=== PATIENT | female | born 1955 | race Two or more races ===

== ENCOUNTER → 2017-07-15 | Outpatient (CLI) | payer OTHER | END | disposition home or self-care (01) | LOC: MRI 14:43 | DX: M12.811 Other specific arthropathies, not elsewhere classified, right shoulder (principal); M75.121 Complete rotator cuff tear or rupture of right shoulder, not specified as traumatic | CPT/HCPCS: 73221 ==

== ENCOUNTER 2017-08-05 09:47 | Day surgery (SDC) | payer OTHER ==
[~2017-08-05 09:47] MED LIST: LIDOCAINE 1% PF 2 ML VIAL. ID; MORPHINE SULFATE 4 MG/ML DISP.SYRIN. IV; ONDANSETRON PF 4 MG/2 ML VIAL. IV; PROCHLORPERAZINE 10 MG/2 ML VIAL. IV; ceFAZolin 2GM PREMIX 2 GM/50 ML BAG IV; fentaNYL PF VIAL 100 MCG/2 ML VIAL IV
[2017-08-05] MEDS ORDERED: PROPOFOL 20 ML IV (09:48)
[2017-08-05] MEDS ORDERED: LIDOCAINE 2% PF Vial for OR 5 ML VIAL. (09:48)
[2017-08-05] MEDS ORDERED: DEXAMETHASONE SOD PHOS 20 MG/5 ML VIAL. (09:50)
[2017-08-05] MEDS ORDERED: ePHEDrine PF IN SALINE 50 MG/5 ML DISP.SYRIN IV (09:50)
[2017-08-05] MEDS ORDERED: ONDANSETRON PF 4 MG/2 ML VIAL. (09:50)
[2017-08-05] MEDS ORDERED: ROCURONIUM 50 MG/5 ML VIAL. (09:51)
[2017-08-05] MEDS ORDERED: fentaNYL PF VIAL 100 MCG/2 ML VIAL (09:52)
[2017-08-05 11:12] LABS: POC GLUCOSE 67 mg/dL (70-99)
[2017-08-05] MEDS: IV RINGERS,LACTATED 1000ML 1,000 ML IV (11:15)
[2017-08-05] MEDS: DEXTROSE 50% 25 GM / 50ML DISP.SYRIN. IV (11:25)
[2017-08-05 11:50] LABS: POC GLUCOSE 111 mg/dL (70-99)
[2017-08-05] MEDS ORDERED: MIDAZOLAM HCL/PF 2 MG/2 ML VIAL. (11:51)
[2017-08-05] MEDS: EPINEPHrine VIAL 30 MG/30 ML VIAL (12:26)
[2017-08-05] MEDS ORDERED: PHENYLEPHRINE 10 MG/ML VIAL. (12:49)
[2017-08-05] MEDS ORDERED: NEOSTIGMINE METHYLSULFATE 5 MG/5 ML SYRINGE. (13:38)
[2017-08-05] MEDS ORDERED: GLYCOPYRROLATE 1 MG/5 ML VIAL. (13:39)
[2017-08-05 14:18] LABS: POC GLUCOSE 104 mg/dL (70-99)
[2017-08-05] MEDS: oxyCODONE/APAP 7.5/325 1 TAB TABLET PO (15:13)
== END 2017-08-05 16:12 | disposition home or self-care (01) ==
LOC: SURG 09:47
DX: S46.011A Strain of muscle(s) and tendon(s) of the rotator cuff of right shoulder, initial encounter (principal); M75.01 Adhesive capsulitis of right shoulder; I10 Essential (primary) hypertension; E11.9 Type 2 diabetes mellitus without complications; E78.5 Hyperlipidemia, unspecified; E55.9 Vitamin D deficiency, unspecified; E03.9 Hypothyroidism, unspecified; K58.9 Irritable bowel syndrome, unspecified; Z98.890 Other specified postprocedural states; Z83.3 Family history of diabetes mellitus; Z87.891 Personal history of nicotine dependence; Z79.899 Other long term (current) drug therapy; Z79.4 Long term (current) use of insulin; E78.00 Pure hypercholesterolemia, unspecified; M19.90 Unspecified osteoarthritis, unspecified site; Z72.89 Other problems related to lifestyle; Z86.14 Personal history of Methicillin resistant Staphylococcus aureus infection; X58.XXXA Exposure to other specified factors, initial encounter; Y93.89 Activity, other specified; Y92.89 Other specified places as the place of occurrence of the external cause; Y99.8 Other external cause status
CPT/HCPCS: 29827; 82962; A7015; J0171; J0690; J1100; J2250; J2405; J2704; J2710; J3010; J3490; J7042

== ENCOUNTER → 2017-10-03 | Outpatient (CLI) | payer OTHER | END | disposition home or self-care (01) | LOC: MAMMO 07:43 | DX: Z12.31 Encounter for screening mammogram for malignant neoplasm of breast (principal) | CPT/HCPCS: 77067 ==

== ENCOUNTER → 2017-12-09 | Day surgery (SDC) | payer OTHER ==
[~2017-12-09] MED LIST changes: +ALEN70TA5 PO; +BUPIVACAINE MPF 0.5% 30 ML VIAL. ONE; +CHOL4POW2 PO; +CIPR250T30 PO; +CIPR500T94 PO; +DOXY100C2 PO; +ERGO500027 PO; +FLUT9.9S NS; +HYDR-3165 PO; +HYDROcodone/APAP 7.5/325MG 1 TAB TABLET PO ONE; +HYDROmorphone 2 MG/ML VIAL IV PRN; +IBUP-1007 PO; +INSU100C SQ; +INSU100C4 SQ; +INSU100I17 SQ; +INSU100I18 SQ; +INSU100I30 SQ; +INSU100V13 SQ; +IV RINGERS,LACTATED 1000ML 1,000 ML IV SCH; +LEVO125T5 PO; +LEVO150T PO; -LIDOCAINE 1% PF 2 ML VIAL. ID; +LIDOCAINE 1% PF 2 ML VIAL. ID PRN; +LOSA100T7 PO; +LOSA50TA2 PO; +MAGN400T22 PO; +METR500T PO; +MORPHINE SULFATE 2 MG/ML VIAL. IV PRN; +MORPHINE SULFATE 2 MG/ML VIAL. ONE; -MORPHINE SULFATE 4 MG/ML DISP.SYRIN. IV; +NPH,100V5 SQ; -ONDANSETRON PF 4 MG/2 ML VIAL. IV; +ONDANSETRON PF 4 MG/2 ML VIAL. IV PRN; +OXYC1TAB19 PO; +PRAV40TA2 PO; -PROCHLORPERAZINE 10 MG/2 ML VIAL. IV; +PROCHLORPERAZINE 10 MG/2 ML VIAL. IV PRN; +PROPOFOL 40 ML IV ONE; -ceFAZolin 2GM PREMIX 2 GM/50 ML BAG IV; -fentaNYL PF VIAL 100 MCG/2 ML VIAL IV; +fentaNYL PF VIAL 100 MCG/2 ML VIAL IV PRN; +fentaNYL PF VIAL 100 MCG/2 ML VIAL ONE; +losartan; +methylPREDNISolone ACETATE 80 MG/ML VIAL. ONE; +pravastatin
--- NOTE | 2017-12-09 15:03 | DISCH ---
DISCHARGE INSTRUCTIONS Condition on Discharge Condition on Discharge: Stable Activity After Discharge Activity Instructions for Disc: No restrictions, Other, see below Exercise Instruction after Dis: Exercise per therapy (immediate full aggressive active and passive range of motion, no restrictions) Diet after Discharge Diet after Discharge: Regular Liquid Texture: Thin Liquid Wound Incision Care Wound/Incision Care: Ice to area for comfort, No wound care needed Community/Resources/Services Services at Discharge: PT EVALUATE & TREAT (immediate aggressive passive and active range of motion strengthening as tolerated) Contacting the DRMasoud after DC Call your doctor for: Concerns you may have Follow-Up Follow up with: Yani 7-10 days Treatment/Equipment after DC Adaptive Equipment Issued: None ALVARADO PEACE MD Dec 09, 2017 15:03
[2017-12-09] MEDS: fentaNYL PF VIAL 100 MCG/2 ML VIAL IV PRN ×4 (15:20→15:49)
--- NOTE | 2017-12-09 15:47 | PDOC4 ---
Operative Note Operative Note Date of surgery: 12/09/2017 Preoperative diagnosis: Right shoulder adhesive capsulitis Postoperative diagnosis: Same Operative procedure: Right shoulder manipulation under anesthesia and injection glenohumeral joint Surgeon: Yani Anesthesia: Deep sedation Operative indications: Mellissa had undergone previous right shoulder arthroscopy and developed frozen shoulder that she was unable to overcome despite diligent physical therapy and home exercises. I had gone over with her and her preoperative consultation the rationale for treatment with the manipulation under anesthesia the possibility that the frozen shoulder would go away on its own after about an average of 18 months and the other option that she has been trying aggressive motion and stretching with physical therapy and home exercises which has failed. All her questions were answered she wishes to proceed with surgical evaluation and treatment. Operative text: Patient was identified procedure verified patient placed in the supine position on the patient cart. After timeout was performed patient procedure identified and verified and adequate amounts of deep sedation provided motion of the right shoulder was first checked and found to lack terminal 60 of external rotation and abduction about 50 of elevation and forward flexion and about 25-30 of terminal motion and internal rotation all of which were restored fully after an audible and palpable release of tissue with manipulation full range of motion without instability was restored in all planes. Under sterile conditions 1 mL 80 mg/mm Depo-Medrol and 3 mL of half percent plain lidocaine were injected into the glenohumeral joint. She tolerated the procedure well and was given strict instructions to not immobilize the shoulder at all but instead pursue immediate full range of motion with physical therapy as soon as possible for unrestricted passive and active range of motion aggressively strengthening as tolerated ALVARADO PEACE MD Dec 09, 2017 15:47
[2017-12-09 16:35] VITALS: BP 155/63
== END | disposition home or self-care (01) ==
LOC: SURG 12:01
PROVIDERS: ATTEND Orthopaedic Surgery
DX: M75.01 Adhesive capsulitis of right shoulder (principal); I10 Essential (primary) hypertension; E11.9 Type 2 diabetes mellitus without complications; E78.5 Hyperlipidemia, unspecified; E03.9 Hypothyroidism, unspecified; M81.0 Age-related osteoporosis without current pathological fracture; E55.9 Vitamin D deficiency, unspecified; K58.9 Irritable bowel syndrome, unspecified; Z98.890 Other specified postprocedural states; Z87.891 Personal history of nicotine dependence; Z72.89 Other problems related to lifestyle; Z79.899 Other long term (current) drug therapy; Z79.84 Long term (current) use of oral hypoglycemic drugs; Z79.4 Long term (current) use of insulin; Z86.14 Personal history of Methicillin resistant Staphylococcus aureus infection
CPT/HCPCS: 23700; 82962; J1040; J2270; J2704; J3010; J3490

== ENCOUNTER → 2018-10-19 | Outpatient (CLI) | payer OTHER ==
[2017-12-09 16:35] VITALS: BP 155/63
[~2018-10-19] MED LIST changes: -ALEN70TA5 PO; +ALEN70TA6 PO; -BUPIVACAINE MPF 0.5% 30 ML VIAL. ONE; -HYDROcodone/APAP 7.5/325MG 1 TAB TABLET PO ONE; -HYDROmorphone 2 MG/ML VIAL IV PRN; -IV RINGERS,LACTATED 1000ML 1,000 ML IV SCH; -LIDOCAINE 1% PF 2 ML VIAL. ID PRN; +LOSA-73 PO; +LOSA100T14 PO; -LOSA100T7 PO; -LOSA50TA2 PO; -MORPHINE SULFATE 2 MG/ML VIAL. IV PRN; -MORPHINE SULFATE 2 MG/ML VIAL. ONE; -ONDANSETRON PF 4 MG/2 ML VIAL. IV PRN; -PROCHLORPERAZINE 10 MG/2 ML VIAL. IV PRN; -PROPOFOL 40 ML IV ONE; -fentaNYL PF VIAL 100 MCG/2 ML VIAL IV PRN; -fentaNYL PF VIAL 100 MCG/2 ML VIAL ONE; -methylPREDNISolone ACETATE 80 MG/ML VIAL. ONE
--- NOTE | 2018-10-20 12:43 | SLEEP ---
DATE OF STUDY: 10/19/2018 SLEEP STUDY REFERRING PHYSICIAN: Gideon Jason MD The patient is 63 years old who weighs 187 pounds with a BMI of 34. The patient's Rifton score was 9. The patient underwent home sleep study performed at [facility]. Total recording time was 469 minutes. During the night study, the patient had 66 obstructive apneas and 131 mixed apneas, no central apneas and 220 hypopneas. The patient's apnea-hypopnea index was 53 per hour. Supine sleep, not recorded. Nocturnal oximetry study revealed an average oxygen saturation of 93% with the lowest of 69%. 41 minutes were spent in oxygen saturation less than 90%. Mean heart rate 71 beats per minute. IMPRESSION: 1. Severe sleep apnea-hypopnea syndrome at an AHI of 53 per hour. 2. Nocturnal hypoxia secondary to obstructive sleep apnea. RECOMMENDATIONS: 1. The patient would benefit from in-lab CPAP titration study. 2. Once the patient is optimally treated with CPAP then follow up in 4-6 weeks to assess compliance with CPAP and to document clinical improvement. 3. Weight loss is advised. 4. Avoid NETWORK LEAD depressants. 5. Caution regarding driving until symptoms of sleep apnea resolve with the use of CPAP. BHAVIN MELISSA MD DR: SUDARSHAN/nisreen JOB#: [id number] / [id number] GIDEON Vernon MD
== END | disposition home or self-care (01) ==
LOC: RT 08:01
PROVIDERS: ATTEND Family Medicine
DX: G47.33 Obstructive sleep apnea (adult) (pediatric) (principal); G47.34 Idiopathic sleep related nonobstructive alveolar hypoventilation
CPT/HCPCS: G0399

== ENCOUNTER → 2019-08-31 | Outpatient (CLI) | payer OTHER ==
[2017-12-09 16:35] VITALS: BP 155/63
--- NOTE | 2019-08-31 09:38 | CARD ---
MR#: [id number] Date of Study: 08/31/2019 Ordering Physician: ABHINAV BRENNER, Referring Physician: ABHINAV BRENNER, Tech: Bhumika Santizo APPROVED REPORT EXAM: Two-dimensional and M-mode echocardiogram with Doppler and color Doppler. Other Information Quality : AverageHR: 80bpm Technically limited study due to body habitus. INDICATION Dyspnea 2D DIMENSIONS RVDd3.4 (2.9-3.5cm)Left Atrium(2D)2.7 (1.6-4.0cm) IVSd1.3 (0.7-1.1cm)Aortic Root(2D)2.6 (2.0-3.7cm) LVDd4.8 (3.9-5.9cm)LVOT Diameter2.1 (1.8-2.4cm) PWd1.0 (0.7-1.1cm)LVDs2.6 (2.5-4.0cm) FS (%) 46.8 %SV84.2 ml LVEF(%)78.1 (>50%) Aortic Valve AoV Peak Dane.149.1cm/sAoV VTI32.5cm AO Peak GR.8.9mmHgLVOT Peak Dane.109.5cm/s LVOT VTI 25.83cmAO Mean GR.5mmHg SHERI (VMAX)1.87re7ORX (VTI)2.71cm2 Mitral Valve MV E Saodmmus48.1cm/sMV DECEL QIYQ941tw MV A Ivugksjg36.3cm/sMV E Mean Gr.2mmHg MV FFU46vnN/A Ratio0.7 MVA (PHT)2.79cm2 TDI E/Lateral E'10.3E/Medial E'9.6 Pulmonary Valve PV Peak Ntocvknw95.8cm/sPV Peak Grad.4mmHg Tricuspid Valve TR P. Gjafeppf793fy/sRAP FWGRMCED0pxEj TR Peak Gr.22afEsESNO87lvGj Pulmonary Vein S1 Xanatsqo42.1cm/sD2 Avoujtnj28.8cm/s PVa [id number] LEFT VENTRICLE The left ventricle is normal size. There is borderline to mild concentric left ventricular hypertroph y. The left ventricular systolic function is normal. The Ejection Fraction is 60-65%. There is normal LV segmental wall motion. Transmitral Doppler flow pattern is Grade I-abnormal relaxation pattern. RIGHT VENTRICLE The right ventricle is normal size. There is normal right ventricular wall thickness. The right ventr icular systolic function is normal. ATRIA The left atrium is borderline dilated. The right atrium size is normal. The interatrial septum is int act with no evidence for an atrial septal defect or patent foramen ovale as noted on 2-D or Doppler i maging. AORTIC VALVE The aortic valve is thickened but opens well. Doppler and Color Flow revealed no significant aortic r egurgitation. There is no significant aortic valvular stenosis. MITRAL VALVE The mitral valve is normal in structure and function. There is no evidence of mitral valve prolapse. There is no mitral valve stenosis. Doppler and Color-flow revealed trace mitral regurgitation. TRICUSPID VALVE The tricuspid valve is normal in structure and function. Doppler and Color Flow revealed trace tricus pid regurgitation with an estimated PAP of 35 mmHg. There is no tricuspid valve stenosis. PULMONIC VALVE The pulmonic valve is not well visualized. Doppler and Color Flow revealed trace pulmonic valvular re gurgitation. GREAT VESSELS The aortic root is normal in size. The ascending aorta is normal in size. The IVC is dilated and imani apses >50% with inspiration. PERICARDIAL EFFUSION There is no evidence of significant pericardial effusion. Critical Notification Critical Value: No <Conclusion> The left ventricular systolic function is normal. The Ejection Fraction is 60-65%. There is normal LV segmental wall motion. Transmitral Doppler flow pattern is Grade I-abnormal relaxation pattern. Trace mitral regurgitation. Trace tricuspid regurgitation with an estimated PAP of 35 mmHg. There is no evidence of significant pericardial effusion. Signed by : Nayan Figueroa, Electronically Approved : 08/31/2019 09:38:08
== END | disposition home or self-care (01) ==
LOC: ECHO 07:38
PROVIDERS: ATTEND Internal Medicine Cardiovascular Disease
DX: I51.7 Cardiomegaly (principal)
CPT/HCPCS: 93306

== ENCOUNTER 2019-10-27 12:22 | Emergency (ER) | payer OTHER ==
[~2019-10-27] VITALS: Ht 154.9 cm; Wt 89.7 kg
[2019-10-27 12:39] VITALS: BP 182/105
--- NOTE | 2019-10-27 12:49 | PHYS DOC ---
Past Medical History Past Medical History: Diabetes-Type II, High Cholesterol, Hypertension, MRSA, Pneumonia, Other Additional Past Medical Histor: urinary sepsis Past Surgical History: Other Additional Past Surgical Histo: perirectal abscess Smoking Status: Former Smoker Alcohol Use: Occasionally Drug Use: None General Adult EDM: Chief Complaint: MECHANICAL FALL HPI: HPI: Patient is a 64 year old female who presents with had the dog leash in 1 hand and a big tree limb and another and was dragging the tree limb and when she went to turn the leash got caught on the tree limb and she tripped and fell backward hitting the left back of her head on cement. She denies LOC but states she is nauseated. Patient denies neck pain, back pain, dizziness, vision changes, numbness or tingling, focal weakness, vomiting, syncope. She rates the throbbing pain in her head a 10 out of 10. Patient's blood pressure is slightly elevated but she has not taken her blood pressure medications today. Patient has a history of hypertension, diabetes, high cholesterol, pneumonia, MRSA. Review of Systems: Review of Systems: Constitutional: Denies fever or chills. [] Eyes: Denies change in visual acuity. [] HENT: Denies nasal congestion or sore throat. [] Respiratory: Denies cough or shortness of breath. [] Cardiovascular: Denies chest pain or edema. [] GI: Denies abdominal pain, nausea, vomiting, bloody stools or diarrhea. [] : Denies dysuria. [] Musculoskeletal: Denies back pain or joint pain. [] Integument: Denies rash. Bruising to back of head with tenderness. [] Neurologic: headache, denies focal weakness or sensory changes. [] Endocrine: Denies polyuria or polydipsia. [] Lymphatic: Denies swollen glands. [] Psychiatric: Denies depression or anxiety. [] Heart Score: Risk Factors: Risk Factors: DM, Current or recent (<one month) smoker, HTN, HLP, family history of CAD, obesity. Risk Scores: Score 0 - 3: 2.5% MACE over next 6 weeks - Discharge Home Score 4 - 6: 20.3% MACE over next 6 weeks - Admit for Clinical Observation Score 7 - 10: 72.7% MACE over next 6 weeks - Early Invasive Strategies Allergies: Allergies: Allergies Coded Allergies Type Severity Reaction Last Updated Verified No Known Drug Allergies 12/09/17 No Physical Exam: PE: Constitutional: Well developed, well nourished, no acute distress, non-toxic appearance. [] HENT: Normocephalic, atraumatic, bilateral external ears normal, oropharynx moist, no oral exudates, nose normal. [] Eyes: PERRLA, EOMI, conjunctiva normal, no discharge. [] Neck: Normal range of motion, no tenderness, supple, no stridor. [] Cardiovascular:Heart rate regular rhythm, no murmur [] Lungs & Thorax: Bilateral breath sounds clear to auscultation [] Abdomen: Bowel sounds normal, soft, no tenderness, no masses, no pulsatile masses. [] Skin: Warm, dry, no erythema, no rash. Bruising to left back scalp with purple center that does feel slightly dented. [] Back: No tenderness, no CVA tenderness. [] Extremities: No tenderness, no cyanosis, no clubbing, ROM intact, no edema. [] Neurologic: Alert and oriented X 3, normal motor function, normal sensory functi on, no focal deficits noted. [] Psychologic: Affect normal, judgement normal, mood normal. [] EKG: EKG: [] Radiology/Procedures: Radiology/Procedures: [] Impression: [facility] [address] [place], [place] [id number] IMAGING REPORT Signed PATIENT: GALO LARA AACCOUNT: [id number] : 1955 LOCATION: ER AGE: 64 SEX: F EXAM STATUS: REG ER ORD. PHYSICIAN: AJ العلي APRN REASON: fall, hit head PROCEDURE: CT HEAD AND CERVICAL SPINE WO CT HEAD AND CERVICAL SPINE WO dated 10/27/2019 12:41 PM. Comparison: 12/02/2015. Clinical Indication: Reason: fall, hit head / Spl. Instructions: / History: PAIN AFTER INJURY. Technical factors: Contiguous 5 mm axial images of the head were obtained from the skullbase to the vertex. No contrast was administered. In addition, 3 mm axial images of the cervical spine were acquired with thin cut coronal and sagittal reconstructions. One or more of the following individualized dose reduction techniques were utilized for this examination: 1. Automated exposure control 2. Adjustment of the mA and/or kV according to patient size 3. Use of iterative reconstruction technique Findings head: Ventricles and sulci are mildly prominent for age. No midline shift or mass effect. There is some mild patchy low density in the deep/subcortical periventricular white matter. No hemorrhage or extra axial collection. Posterior fossa and brainstem unremarkable. Visualized paranasal sinuses and mastoid air cells are clear. No apparent calvarial abnormality. IMPRESSION HEAD: 1. No evidence of acute intracranial hemorrhage or mass. 2. Mild chronic small vessel ischemic changes and atrophy. Findings cervical spine: Images were acquired from the skull base to mid T3. There is straightening of the normal cervical lordosis, otherwise sagittal alignment is anatomic. Vertebral body heights are maintained. No prevertebral soft tissue swelling. Posterior elements are intact. No fractures are identified. Mild endplate hypertrophic changes throughout. Mild multilevel disc space narrowing, most severe at C5-C6. Multilevel uncovertebral spurring and facet arthropathy. No significant central canal or foraminal compromise. Visualized soft tissue structures are unremarkable. Nonspecific small calcification within the right lobe thyroid gland. Limited images of lung apices are clear. IMPRESSION CERVICAL SPINE: 1. No evidence of fracture or malalignment. 2. Mild multilevel spondylosis. Electronically signed by: Santa Laureano MD (10/27/2019 1:13 PM) [facility] [place] DICTATED and SIGNED BY: SANTA LAUREANO MD DATE: 10/27/19 1313 Course & Med Decision Making: Course & Med Decision Making Pertinent Labs and Imaging studies reviewed. (See chart for details) Patient is alert and oriented x4. She is ambulatory with a steady gait. No focal bony spinal tenderness, no deformities or bruising with palpation. PERRLA. Speaks in full clear sentences. Full range of motion of her neck. Moves all extremities equally with equal strengths. Answers all questions appropriately. Patient has a dollar coined sized red cachil dehe bruising to the left back of scalp with purple in the middle. It does feel slight dented. Tenderness noted. No bleeding, lacerations, or abrasion. No drainage coming from nose or ears. No other bruising to the face or skull. [] Dragon Disclaimer: Dragon Disclaimer: This electronic medical record was generated, in whole or in part, using a voice recognition dictation system. Departure Departure Impression: Primary Impression: Head injury, acute, without loss of consciousness Qualified Codes: S09.90XA - Unspecified injury of head, initial encounter Disposition: 01 HOME, SELF-CARE Condition: STABLE Referrals: SANTA MARK MD (PCP) Patient Instructions: Head Injury, Adult Additional Instructions: Follow up with primary care provider. Take medications as prescribed. These medications will make you sleepy, do not drive or operate heavy machinery or drink alcohol with these medications. For the next 3-5 days rest and try not to do any strenuous activities as this can make your head pain worse. If you pass out, begin having severe vomiting, or severe pain return to the ED. Scripts Orphenadrine Citrate (ORPHENADRINE CITRATE) 100 Mg Tablet.er 1 TAB PO BID, #14 TAB 1 Refill Prov: AJ العلي APRN 10/27/19 Ondansetron (ONDANSETRON ODT) 4 Mg Tab.rapdis 1 TAB PO PRN Q6-8HRS, #16 TAB Prov: AJ العلي APRN 10/27/19 Hydrocodone/Apap 5-325 (NORCO 5-325 TABLET) 1 Each Tablet 1 TAB PO PRN Q6HRS PRN for PAIN, #12 TAB 0 Refills Prov: AJ العلي APRN 10/27/19 Justicifation of Admission Dx: Justifications for Admission: Justification of Admission Dx: N/A AJ العلي APRN Oct 27, 2019 12:49
[2019-10-27] MEDS: ONDANSETRON ODT 4 MG TAB.RAPDIS. PO ONE (12:57)
[2019-10-27] MEDS: ORPHENADRINE CITRATE 60 MG/2 ML VIAL. IM ONE (12:58)
[2019-10-27] MEDS: HYDROcodone/APAP 5/325MG 1 TAB TABLET PO ONE (12:58)
--- NOTE | 2019-10-27 13:16 | RAD ---
CT HEAD AND CERVICAL SPINE WO dated 10/27/2019 12:41 PM. Comparison: 12/02/2015. Clinical Indication: Reason: fall, hit head / Spl. Instructions: / History: PAIN AFTER INJURY. Technical factors: Contiguous 5 mm axial images of the head were obtained from the skullbase to the vertex. No contrast was administered. In addition, 3 mm axial images of the cervical spine were acquired with thin cut coronal and sagittal reconstructions. One or more of the following individualized dose reduction techniques were utilized for this examination: 1. Automated exposure control 2. Adjustment of the mA and/or kV according to patient size 3. Use of iterative reconstruction technique Findings head: Ventricles and sulci are mildly prominent for age. No midline shift or mass effect. There is some mild patchy low density in the deep/subcortical periventricular white matter. No hemorrhage or extra axial collection. Posterior fossa and brainstem unremarkable. Visualized paranasal sinuses and mastoid air cells are clear. No apparent calvarial abnormality. IMPRESSION HEAD: 1. No evidence of acute intracranial hemorrhage or mass. 2. Mild chronic small vessel ischemic changes and atrophy. Findings cervical spine: Images were acquired from the skull base to mid T3. There is straightening of the normal cervical lordosis, otherwise sagittal alignment is anatomic. Vertebral body heights are maintained. No prevertebral soft tissue swelling. Posterior elements are intact. No fractures are identified. Mild endplate hypertrophic changes throughout. Mild multilevel disc space narrowing, most severe at C5-C6. Multilevel uncovertebral spurring and facet arthropathy. No significant central canal or foraminal compromise. Visualized soft tissue structures are unremarkable. Nonspecific small calcification within the right lobe thyroid gland. Limited images of lung apices are clear. IMPRESSION CERVICAL SPINE: 1. No evidence of fracture or malalignment. 2. Mild multilevel spondylosis. Electronically signed by: Gideon Laureano MD (10/27/2019 1:13 PM) [facility]
[2019-10-27] MEDS ORDERED: ONDA4TAB12 PO (13:22)
[2019-10-27] MEDS ORDERED: HYDR-3164 PO (13:22)
[2019-10-27] MEDS ORDERED: ORPH100T PO (13:22)
== END 2019-10-27 13:45 | disposition home or self-care (01) ==
LOC: ER 12:22
DX: S30.0XXA Contusion of lower back and pelvis, initial encounter (principal); S09.8XXA Other specified injuries of head, initial encounter; E11.9 Type 2 diabetes mellitus without complications; E78.00 Pure hypercholesterolemia, unspecified; I10 Essential (primary) hypertension; Z86.14 Personal history of Methicillin resistant Staphylococcus aureus infection; Z98.890 Other specified postprocedural states; Z87.891 Personal history of nicotine dependence; W18.09XA Striking against other object with subsequent fall, initial encounter; Y93.89 Activity, other specified; Y92.89 Other specified places as the place of occurrence of the external cause; Y99.8 Other external cause status
CPT/HCPCS: 70450; 72125; 96372; 99285; J2360

== ENCOUNTER → 2020-03-28 | Outpatient (CLI) | payer OTHER ==
[~2020-03-28] MED LIST changes: -ALEN70TA6 PO; +ALEN70TA71 PO; +HYDR-3164 PO; +ONDA4TAB12 PO; +ORPH100T PO
== END ==
LOC: LAB 10:44
PROVIDERS: ATTEND Orthopaedic Surgery
DX: Z01.812 Encounter for preprocedural laboratory examination (principal); Z20.828 Contact with and (suspected) exposure to other viral communicable diseases
CPT/HCPCS: U0003

== ENCOUNTER 2020-03-31 06:09 | Day surgery (SDC) | payer OTHER ==
[~2020-03-31] VITALS: Ht 157.5 cm; Wt 91.2 kg
[2020-03-31] MEDS ORDERED: INSULIN LISPRO 100 UNIT/ML 3ML VIAL for OP,RR ONLY. SQ PRN (06:15)
[2020-03-31] MEDS ORDERED: BUPIVACAINE MPF 0.5% 30 ML VIAL. ONE (06:52)
[2020-03-31] MEDS ORDERED: LIDOCAINE 1% PF 2 ML VIAL. ONE (06:52)
[2020-03-31] MEDS ORDERED: fentaNYL PF VIAL 100 MCG/2 ML VIAL ONE ×2 (06:57→08:26)
[2020-03-31] MEDS ORDERED: MIDAZOLAM HCL/PF 2 MG/2 ML VIAL. ONE (06:57)
[2020-03-31] MEDS ORDERED: IV RINGERS,LACTATED 1000ML 1,000 ML IV SCH (07:00)
[2020-03-31] MEDS ORDERED: methylPREDNISolone ACETATE 80 MG/ML VIAL. ONE (07:00)
[2020-03-31] MEDS ORDERED: MORPHINE SULFATE 2 MG/ML VIAL. IV PRN (07:00)
[2020-03-31] MEDS ORDERED: HYDROmorphone 2 MG/ML VIAL IV PRN (07:00)
[2020-03-31] MEDS ORDERED: BUPIVACAINE-EPI 0.5%-1:200000 MPF 30 ML VIAL. INJ ONE (07:00)
[2020-03-31] MEDS ORDERED: ONDANSETRON PF 4 MG/2 ML VIAL. IV PRN (07:00)
[2020-03-31] MEDS ORDERED: fentaNYL PF VIAL 100 MCG/2 ML VIAL IV PRN ×2 (07:00)
[2020-03-31] MEDS ORDERED: PROCHLORPERAZINE 10 MG/2 ML VIAL. IV PRN (07:00)
[2020-03-31] MEDS ORDERED: PROPOFOL 10 MG/ML (20ML) VIAL. IV ONE (07:02)
[2020-03-31] MEDS ORDERED: LIDOCAINE 2% PF 5 ML VIAL. ONE (07:02)
[2020-03-31] MEDS ORDERED: INSULIN LISPRO 100 UNIT/ML 3ML VIAL for OP,RR ONLY. SQ ONE (08:00)
--- NOTE | 2020-03-31 08:37 | DISCH ---
DISCHARGE INSTRUCTIONS Condition on Discharge Condition on Discharge: Stable Activity After Discharge Activity Instructions for Disc: No restrictions (No activity restrictions w hatsoever immediate aggressive range of motion with physical therapy and home exercises) Exercise Instruction after Dis: Exercise per therapy Weight Bearing Status after Di: As tolerated Diet after Discharge Diet after Discharge: Regular Liquid Texture: Thin Liquid Wound Incision Care Wound/Incision Care: Ice to area for comfort, No wound care needed Community/Resources/Services Services at Discharge: PT EVALUATE & TREAT (Immediate aggressive range of motion to keep the motion restored in the manipulation procedure, may start strengthening as tolerated) Contacting the DRMasoud after DC Call your doctor for: Concerns you may have Follow-Up Follow up with: Dr. Lomeli 10 days Treatment/Equipment after DC Adaptive Equipment Issued: None ALVARADO LOMELI MD Mar 31, 2020 08:37
--- NOTE | 2020-03-31 08:41 | PDOC4 ---
Operative Note Operative Note Date of surgery: 03/31/2020 Preoperative diagnosis: Left shoulder adhesive capsulitis Postoperative diagnosis same Operative procedure: Left shoulder manipulation under anesthesia and injection glenohumeral joint Surgeon: Yani Anesthesia: Interscalene block plus sedation provided by anesthesia Complications: None Estimated blood loss: None Operative indications: Please see my preoperative clinic note for detailed operative indications and note that we reviewed the rationale for manipulation to break up her scar tissue and the necessity of immediate motion stretching physical therapy to keep the motion that she regained. We talked about the possibility of recurrence and medical or other anesthetic issues and she agrees to proceed Operative text: Patient was identified procedure verified patient placed in the supine position on the operating cart and after a pre-existing scalene block was obtained patient was given propofol sedation by anesthesia. The shoulder was first examined and found to lack about 50 degrees of terminal elevation about 45 degrees of terminal external rotation and abduction and about 30 degrees terminal internal rotation. The shoulder was manipulated under anesthesia and obtained full range of motion in all planes with no instability after an audible and palpable release of tissue. The glenohumeral joint was then injected from an anterior approach with half percent Marcaine with epinephrine and 1 cc 80 mg/cc Depo-Medrol under sterile conditions. She was returned to recovery room in stable condition having tolerated the procedure well and she and her family were instructed to proceed with immediate physical therapy to continue her stretching to keep the range of motion ALVARADO PEACE MD Mar 31, 2020 08:41
[2020-03-31 08:58] VITALS: BP 151/62
== END 2020-03-31 09:20 | disposition home or self-care (01) ==
LOC: SURG 06:09
PROVIDERS: ATTEND Orthopaedic Surgery
DX: M75.02 Adhesive capsulitis of left shoulder (principal); I10 Essential (primary) hypertension; E78.00 Pure hypercholesterolemia, unspecified; G47.30 Sleep apnea, unspecified; E66.9 Obesity, unspecified; E11.9 Type 2 diabetes mellitus without complications; E03.9 Hypothyroidism, unspecified; M19.90 Unspecified osteoarthritis, unspecified site; Z87.891 Personal history of nicotine dependence; Z72.89 Other problems related to lifestyle; Z79.899 Other long term (current) drug therapy; Z98.890 Other specified postprocedural states; Z68.36 Body mass index [BMI] 36.0-36.9, adult
CPT/HCPCS: 20610; 23700; 64450; 82962; J0690; J1040; J1815; J2250; J2704; J3010; J3490

== ENCOUNTER → 2020-09-07 | Outpatient (CLI) | payer OTHER ==
--- NOTE | 2020-09-07 11:08 | RAD ---
MR#: [id number] Date of Study: 09/07/2020 Ordering Physician: ABHINAV BRENNER, Referring Physician: ABHINAV BRENNER, Tech: Edwin Conteh MBA, RDMS, RVT, RDCS, RTR APPROVED REPORT Bilateral Lower Extremity Venous Study for DVT Patient Location: OUT-PATIENT Indications Lower Extremity Edema: Bilateral Vein Imaging (Right) CFV (R): Compressible SFJ (R): Compressible FEM (R): Compressible POP (R): Compressible DFV (R): Compressible PTV (R): Spontaneous GSV (R): Spontaneous Peroneals (R): Spontaneous Vein Imaging (Left) CFV (L): Compressible SFJ (L): Compressible FEM (L): Compressible POP (L): Compressible DFV (L): Compressible PTV (L): Spontaneous GSV (L): Spontaneous Peroneals (L): Spontaneous Doppler Evaluation (Right) CFV (R): Spontaneous POP (R):Spontaneous Doppler Evaluation (Left) CFV (L):Spontaneous POP (L):Spontaneous Findings The bilateral lower extremity deep veins were evaluated for thrombus with color Doppler, spectral and grayscale images. On the right the grayscale images of the common femoral, superficial femoral and popliteal veins do n ot demonstrate any evidence of thrombus and these veins appear to be compressible. The below-knee vei ns were not well visualized but grossly appear to be compressible. Spectral imaging and color Doppler do not reveal any evidence of obstruction to flow with normal respirophasic variation above the knee . Below the knee there is spontaneous flow noted. On the left, the grayscale images of the common femoral, superficial femoral and popliteal veins do n ot demonstrate any evidence of thrombus and these veins appear to be compressible. The below-knee vei ns again were not well visualized but grossly appear to be compressible. Spectral imaging and color D oppler do not reveal any evidence of obstruction to flow with normal respirophasic variation above th e knee. The below-knee veins demonstrate spontaneous flow. Critical Notification Critical Value: No <Conclusion> 1. Negative for DVT in the bilateral lower extremities. 2. Technically difficult study. Signed by : Keshav Kidd, Electronically Approved : 09/07/2020 11:07:35
--- NOTE | 2020-09-07 11:11 | RAD ---
MR#: [id number] Date of Study: 09/07/2020 Ordering Physician: ABHINAV BRENNER, Referring Physician: ABHINAV BRENNER, Tech: Edwin Conteh, ZAIDA, RDMS, RVT, RDCS, RTR APPROVED REPORT Patient Location : OUT-PATIENT Indications Lower Extremity Edema : Bilateral Findings The right great saphenous vein measures 4.4 mm and the left great saphenous vein measures 4.6 mm. On limited images, the bilateral saphenofemoral junctions did not reveal any obvious evidence of thro mbus. The bilateral greater and lesser saphenous veins do not show any evidence of reflux on spectral imagi ng. Critical Notification Critical Value: No <Conclusion> 1. Negative for reflux in the bilateral greater and lesser saphenous veins. Signed by : Keshav Kidd, Electronically Approved : 09/07/2020 11:10:38
== END ==
LOC: US 08:44
PROVIDERS: ATTEND Internal Medicine Cardiovascular Disease
DX: R60.0 Localized edema (principal)
CPT/HCPCS: 93970

== ENCOUNTER → 2020-10-26 | Outpatient (CLI) | payer OTHER ==
[~2020-10-26] MED LIST changes: -DOXY100C2 PO; +DOXY100C3 PO
--- NOTE | 2020-10-26 18:54 | CARD ---
MR#: [id number] Date of Study: 10/26/2020 Ordering Physician: RITESH DAVIS, Referring Physician: RITESH DAVIS, Tech: Blas Zamora RUST APPROVED REPORT EXAM: Two-dimensional and M-mode echocardiogram with Doppler and color Doppler. Other Information Quality : FairHR: 77bpm Rhythm : NSR INDICATION Cardiomyopathy RISK FACTORS Obesity 2D DIMENSIONS Left Atrium(2D)4.1 (1.6-4.0cm)IVSd1.1 (0.7-1.1cm) Aortic Root(2D)2.8 (2.0-3.7cm)LVDd4.4 (3.9-5.9cm) LVOT Diameter1.9 (1.8-2.4cm)PWd1.1 (0.7-1.1cm) LVDs2.4 (2.5-4.0cm)FS (%) 45.3 % SV67.7 ml Aortic Valve AoV Peak Dane.140.5cm/sAoV VTI29.4cm AO Peak GR.7.9mmHgLVOT Peak Dane.115.9cm/s AO Mean GR.4mmHgAVA (VMAX)2.41cm2 Mitral Valve MV E Mvjlbjop13.1cm/sMV E Peak Gr.6mmHg MV DECEL [id number] A Dioeclbl021.0cm/s MV E Mean Gr.3mmHgE/A Ratio0.7 Pulmonary Valve PV Peak Bmrnshmq818.4cm/s Tricuspid Valve TR P. Jakpgcdy999lg/sTR Peak Gr.22mmHg Pulmonary Vein S1 Ymydlqhl93.7cm/sD2 Urtrhsmh53.5cm/s LEFT VENTRICLE The left ventricle is normal size. There is normal left ventricular wall thickness. The left ventricu lar systolic function is normal and the ejection fraction is within normal range. The Ejection Fracti on is 60-65%. There is normal LV segmental wall motion. Tissue Doppler imaging reveals abnormal left ventricular diastolic dysfunction. No left ventricle thrombus noted on this study. There is no ventri cular septal defect visualized. There is no left ventricular aneurysm. There is no mass noted in the left ventricle. RIGHT VENTRICLE The right ventricle is normal size. There is normal right ventricular wall thickness. The right ventr icular systolic function is normal. ATRIA The left atrium is borderline dilated. The right atrium size is normal. AORTIC VALVE The aortic valve is mildly sclerotic. Doppler and Color Flow revealed no significant aortic regurgita tion. There is no significant aortic valvular stenosis. There is no aortic valvular vegetation. MITRAL VALVE The mitral valve is normal in structure and function. There is no evidence of mitral valve prolapse. There is no mitral valve stenosis. Doppler and Color Flow revealed trace mitral valve regurgitation. TRICUSPID VALVE The tricuspid valve is normal in structure and function. Doppler and Color Flow revealed trace tricus pid regurgitation. There is no tricuspid valve prolapse or vegetation. There is no tricuspid valve st enosis. PULMONIC VALVE The pulmonary valve is normal in structure and function. Doppler and Color Flow revealed no pulmonic valvular regurgitation. There is no pulmonic valvular stenosis. GREAT VESSELS The aortic root is normal in size. The ascending aorta is normal in size. The pulmonary artery is nor mal. The IVC is normal in size and collapses >50% with inspiration. PERICARDIAL EFFUSION There is no pleural effusion. There is no evidence of significant pericardial effusion. Critical Notification Critical Value: No <Conclusion> The left ventricle is normal size. The left ventricular systolic function is normal and the ejection fraction is within normal range. The Ejection Fraction is 60-65%. There is normal LV segmental wall motion. Doppler and Color Flow revealed no significant aortic regurgitation. There is no significant aortic valvular stenosis. Doppler and Color Flow revealed trace mitral valve regurgitation. Doppler and Color Flow revealed trace tricuspid regurgitation. Signed by : Ritesh Davis MD Electronically Approved : 10/26/2020 18:53:35
== END ==
LOC: ECHO 07:04
PROVIDERS: ATTEND Internal Medicine Cardiovascular Disease
DX: I42.9 Cardiomyopathy, unspecified (principal); I35.8 Other nonrheumatic aortic valve disorders; I51.9 Heart disease, unspecified
CPT/HCPCS: 93306

== ENCOUNTER → 2021-02-28 | Outpatient (CLI) | payer OTHER ==
[2020-11-29 15:00] VITALS: BP 136/71
[~2021-02-28] MED LIST changes: +ERGO2000 PO; +FURO20TA3 PO; +GABA300C18 PO; +GLIM2TAB7 PO; +INSU100V8 SQ; +INSU500I SQ; +LEVO175T5 PO; +LUBI24CA7 PO; +METH4TAB PO; +PIOG15TA42 PO; +POTA10TA12 PO
--- NOTE | 2021-02-28 13:10 | RAD ---
MR LUMBAR SPINE [id number] History: Reason: spinal stenosis of lumbar region with neurogenic caudication / Spl. Instructions: / History: Technique: Multiplanar, multi sequential MR imaging was performed of the lumbar spine. Comparison: None Findings: Normal vertebral body height and alignment. No fracture. Minimal degenerative endplate edema L1-L2 on the right. Conus terminates at the normal location. No evidence of nerve root clumping. Sacral Tarlov cysts. L1-L2: Small disc bulge. Mild facet arthropathy. Right foraminal disc protrusion. Moderate right bessie roforaminal narrowing. No left neuroforaminal narrowing. L2-L3: Small disc bulge. Mild facet arthropathy. No canal narrowing. No neuroforaminal narrowing. L3-L4: Small disc bulge. Mild facet arthropathy. No canal narrowing. No neuroforaminal narrowing. L4-L5: Small disc bulge. Moderate facet arthropathy. Ligament of flavum thickening. No canal narrowi ng. No neuroforaminal narrowing. L5-S1: Disc bulge. Moderate to advanced facet arthropathy. Bilateral facet joint effusions. Minimal canal narrowing. No neuroforaminal narrowing. S1-S2: Right foraminal cystic lesion abutting the exiting right S1 nerve root measures 1.1 x 0.8 cm. Impression: 1. Mild lumbar spondylosis. 2. Moderate right L1-L2 neuroforaminal narrowing. 3. Small cystic lesion within the right S1-S2 neuroforamen abutting the exiting S1 nerve root, may r epresent synovial cyst from the right L5-S1 facet joint. Correlate for radiculopathy. Electronically signed by: Antoine Young DO (02/28/2021 1:07 PM) [id number]
== END ==
LOC: MRI 09:41
PROVIDERS: ATTEND Family Medicine
DX: M47.816 Spondylosis without myelopathy or radiculopathy, lumbar region (principal); M51.27 Other intervertebral disc displacement, lumbosacral region; M48.8X7 Other specified spondylopathies, lumbosacral region; M48.062 Spinal stenosis, lumbar region with neurogenic claudication; G96.191 Perineural cyst
CPT/HCPCS: 72148

== ENCOUNTER → 2021-05-01 | Outpatient (CLI) | payer OTHER ==
[2020-11-29 15:00] VITALS: BP 136/71
[~2021-05-01] MED LIST changes: +DOCU-109 PO; +HYDR-2761 PO; +INSU100I11 SQ; +INSU100I51 SQ; +METH-562 PO
[2021-05-01 14:13] LABS: BASO % 1 % (0-3); EOS # 0.2 x10^3/uL (0.0-0.7); EOS % 4 % (0-3); HEMATOCRIT 37.4 % (36.0-47.0); HEMOGLOBIN 12.4 g/dL (12.0-15.5); LYMPH # 1.5 x10^3/uL (1.0-4.8); LYMPH % 26 % (24-48); MEAN CORPUSCULAR HEMOGLOBIN 29 pg (25-35); MEAN CORPUSCULAR HGB CONC 33 g/dL (31-37); MEAN CORPUSCULAR VOLUME 87 fL (79-100); MONO # 0.4 x10^3/uL (0.0-1.1); MONO % 7 % (0-9); NEUT # 3.7 x10^3/uL (1.8-7.7); NEUT % 63 % (31-73); PLATELET COUNT 132 x10^3/uL (140-400); RED BLOOD COUNT 4.29 x10^6/uL (3.50-5.40); RED CELL DISTRIBUTION WIDTH 13.8 % (11.5-14.5); WHITE BLOOD COUNT 5.9 x10^3/uL (4.0-11.0)
[2021-05-01 14:35] LABS: ALBUMIN 3.5 g/dL (3.4-5.0); ALBUMIN/GLOBULIN RATIO 0.8 (1.0-1.7); CALCIUM 9.1 mg/dL (8.5-10.1); CREATININE 1.5 mg/dL (0.6-1.0); POTASSIUM 4.3 mmol/L (3.5-5.1); TOTAL BILIRUBIN 0.3 mg/dL (0.2-1.0); TOTAL PROTEIN 7.8 g/dL (6.4-8.2)
--- NOTE | 2021-05-01 14:59 | EKG ---
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
[2021-05-03 01:09] LABS: HEMOGLOBIN A1C 9.7 % (4.8-5.6)
== END ==
LOC: SURGPAT 11:51
PROVIDERS: ATTEND Neurological Surgery
DX: Z01.818 Encounter for other preprocedural examination (principal); M71.30 Other bursal cyst, unspecified site; M54.17 Radiculopathy, lumbosacral region
CPT/HCPCS: 36415; 80053; 83036; 85025; 87641; 93005

== ENCOUNTER 2021-05-07 07:14 | Day surgery (SDC) | payer OTHER ==
[2021-05-01 13:25] VITALS: BP 170/75
--- NOTE | 2021-05-06 18:12 | PREOP HP ---
DATE OF SERVICE: 05/07/2021 HISTORY OF PRESENT ILLNESS: The patient is a pleasant 65-year-old woman who is having difficulty with low back pain and numbness in her right buttock and hip region. The problem started in 10/2020. She says her pain is 5/10 usually, but can be higher than this intermittently. Standing and walking increase her pain. Sitting does give her some relief. She is taking Tylenol. She has been off work since 11/18. She did physical therapy with no benefit. MEDICATIONS: She is currently taking medications, which include Novolin, albuterol, fluticasone, furosemide, potassium, vitamin D, pravastatin, losartan, levothyroxine, glimepiride, Actos, Tylenol. PAST MEDICAL HISTORY: Arthritis, hypertension, MRSA, thyroid disease, diabetes. PAST SURGICAL HISTORY: Shoulder manipulation in 2020. Rotator cuff surgery in 2018. FAMILY HISTORY: Diabetes, seizures, hypertension. 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 . Does not smoke. Quit smoking more than 10 years ago. Drinks alcohol 1-2 times per month. ALLERGIES: No known drug allergies. REVIEW OF SYSTEMS: A 12-point review of systems was performed and is noncontributory except that mentioned above. PHYSICAL EXAMINATION: GENERAL: Alert, pleasant, in no acute distress. HEENT: Head is normocephalic, atraumatic. SKIN: Warm and dry. MUSCULOSKELETAL: Lumbar paraspinal muscle bulk is normal, restricted range of motion of the lumbar spine, etsu-jb-ombtkkkh tenderness of the lower lumbar spine with palpation, normal range of motion of the lower extremities bilaterally. EXTREMITIES: No clubbing, cyanosis or edema. NEUROLOGIC: Alert and oriented x 3. Strength is 5/5 in the lower extremities bilaterally. Sensory was intact to light touch in the lower extremities bilaterally, reflexes were present and symmetric in the lower extremities bilaterally, negative straight leg raising bilaterally, normal gait. IMAGING: I reviewed a lumbar MRI scan with and without contrast from 04/09/2020. On that study, the principal finding is at L5-S1 and at S1-2. There is a synovial cyst measuring 1.2 cm, demonstrating peripheral rim enhancement on the right at S1 level. This is relatively large, measuring 1.2 x 1 x 1.1 cm. These interposed between the right S1 and S2 nerve roots and appears to compress the S1 nerve root. ASSESSMENT AND PLAN: She has a large synovial cyst, which is compressing the right S1 root. I feel at this point this should be removed. I spoke with her about surgery, which would include a hemilaminotomy on the right at S1-2 and removal of cyst. I outlined the risk as well as the technique of the operation. I spoke about the expected postoperative course. She understands. We will make the arrangements. VIC DR: Raul TID: [id number]
[~2021-05-07] VITALS: Ht 157.5 cm; Wt 89.5 kg
[~2021-05-07 07:14] MED LIST changes: +BUPIVACAINE-EPI 0.5% 30 ML VIAL KIT. ONE; +DEXAMETHASONE SOD PHOS 4 MG/ML VIAL ONE; -DOCU-109 PO; +GELATIN SPONGE SIZE 100. ONE; -HYDR-2761 PO; +IV RINGERS,LACTATED 1000ML 1,000 ML IV SCH; +KETOROLAC 60 MG/2 ML VIAL. ONE; +LIDOCAINE 2% PF 5 ML VIAL. ONE; -METH-562 PO; +MIDAZOLAM HCL/PF 2 MG/2 ML VIAL. ONE; +ONDANSETRON PF 4 MG/2 ML VIAL. ONE; +PHENYLEPHRINE 10 MG/ML VIAL. ONE; +PROPOFOL 10 MG/ML (20ML) VIAL. IV ONE; +PROPOFOL 50 ML IV ONE; +REMIFENTANIL 2 MG VIAL. IV ONE; +ROCURONIUM 50 MG/5 ML VIAL. ONE; +SEVOFLURANE 61 TO 120 MINUTES. IH ONE; +SUCCINYLCHOLINE 200 MG/10 ML VIAL. ONE; +THROMBIN TOPICAL 20,000 UNIT SPRAY.SYRN KIT TP ONE; +VANCOMYCIN 1 GM in IV NORMAL SALINE 250ML 250 ML IV PRN; +ceFAZolin SODIUM 1 GM in IV NORMAL SALINE 1000ML BAG 1,000 ML IRR ONE; +fentaNYL PF VIAL 100 MCG/2 ML VIAL ONE
[2021-05-07] MEDS ORDERED: ePHEDrine PF IN SALINE 50 MG/10 ML SYRINGE. IV ONE (07:57)
[2021-05-07] MEDS: INSULIN LISPRO 100 UNIT/ML 3ML VIAL for OP,RR ONLY. SQ PRN ×2 (08:36→12:07)
[2021-05-07] MEDS ORDERED: HYDR-2761 PO (11:35)
[2021-05-07] MEDS ORDERED: DOCU-109 PO (11:35)
[2021-05-07] MEDS ORDERED: METH-562 PO (11:35)
--- NOTE | 2021-05-07 11:37 | DISCH ---
DISCHARGE INSTRUCTIONS Condition on Discharge Condition on Discharge: Stable Activity After Discharge Activity Instructions for Disc: Activity as tolerated, Avoid exertion Other activity instructions: no driving for a week Bathing Instructions: Shower-keep dressing dry, No Tub Bath until see Lifting Instructions after Dis: No heavy lifting, No pulling or pushing, Do not lift >10 pounds Exercise Instruction after Dis: Exercise per therapy Weight Bearing Status after Di: As tolerated Diet after Discharge Diet after Discharge: Cardiac, Diabetic No Calorie Level Additional Diet Restrictions: resume home diet Diet Texture: Regular Liquid Texture: Thin Liquid Swallowing Supervision: None needed Wound Incision Care Wound/Incision Care: Ice to area for comfort, No wound care needed Other wound/incision instructi: may remove dressing in 48 hours if dry, leave steri strips in place Checks after Discharge Checks after discharge: Check blood press - daily, Check blood sugar, ac/hs, Check your Temp as needed Contacting the DRMasoud after DC Call your doctor for: Concerns you may have Follow-Up Follow up with: Dr. Mena's nurse in 2 weeks [phone] Treatment/Equipment after DC Adaptive Equipment Issued: None CONOR MENA MD May 07, 2021 11:37
[2021-05-07] MEDS ORDERED: fentaNYL PF VIAL 100 MCG/2 ML VIAL ONE (11:54)
[2021-05-07] MEDS ORDERED: IV RINGERS,LACTATED 1000ML 1,000 ML IV SCH (12:00)
[2021-05-07] MEDS ORDERED: MORPHINE SULFATE 2 MG/ML INJ. IVP PRN (12:00)
[2021-05-07] MEDS ORDERED: HYDROmorphone 2 MG/ML INJ. IVP PRN (12:00)
[2021-05-07] MEDS ORDERED: PROCHLORPERAZINE 10 MG/2 ML VIAL. IVP PRN (12:00)
[2021-05-07] MEDS ORDERED: fentaNYL PF VIAL 100 MCG/2 ML VIAL IVP PRN (12:00)
[2021-05-07] MEDS: fentaNYL PF VIAL 100 MCG/2 ML VIAL IVP PRN ×2 (12:01→12:14)
[2021-05-07] MEDS ORDERED: INSULIN LISPRO 100 UNIT/ML 3ML VIAL for OP,RR ONLY. SQ ONE ×2 (12:10)
[2021-05-07] MEDS ORDERED: IV NORMAL SALINE 1000ML BAG 1,000 ML IV ONE (12:15)
[2021-05-07] MEDS ORDERED: METHOCARBAMOL 500 MG TABLET PO ONE (12:45)
[2021-05-07] MEDS ORDERED: HYDROcodone/APAP 5/325MG 1 TAB TABLET PO ONE (12:45)
[2021-05-07 13:18] VITALS: BP 131/75
[2021-05-07] MEDS ORDERED: BACITRACIN TOPICAL OINT PACKET. TP ONE (14:00)
[2021-05-07] MEDS ORDERED: NEOMY/BACITR/POLYMYXIN OINT PACKET. TP ONE ×2 (14:12→14:15)
--- NOTE | 2021-05-07 20:01 | OP ---
DATE OF SURGERY: 05/07/2021 PREOPERATIVE DIAGNOSES: Synovial cyst, L5-S1/S1-S2 right with right lumbar radiculopathy. POSTOPERATIVE DIAGNOSES: Synovial cyst, L5-S1/S1-S2 right with right lumbar radiculopathy. OPERATION PERFORMED: Lumbar laminectomy L5, S1, S2 with removal of synovial cyst and decompression of the right S1 nerve root. The operation was done with EMG monitoring, SSEP monitoring, motor evoked potentials, fluoroscopy, microscopic dissection. SURGEON: Richard James M.D. DECKHAND SPONGE BOAT: SONYA Caldwell; assisted with the surgery. She assisted with the exposure, removal of synovial cyst and decompression of the right S1 root as well as the closure. OPERATIVE INDICATIONS: The patient is a pleasant 65-year-old who developed severe back and right leg pain, which failed conservative measures. She did physical therapy without any benefit. On imaging studies, she had the above-mentioned findings with a large L5-S1, S1-S2 synovial cyst, which was compressing the S1 root. I recommended lumbar microsurgery. I spoke with her about the surgery and the risk. She understood and she wished to go ahead. DESCRIPTION OF PROCEDURE: Following general endotracheal anesthesia, the patient was positioned prone on the Carloz table. Lumbar region was prepped and draped in the standard fashion. EMMANUEL hose and AV impulse boots were applied for DVT prophylaxis. The microscope was draped, fluoroscopy was draped and brought into the field. Monitoring was established. Ancef 2 grams and vancomycin 1 gram were given preoperatively. Midline incision was made using fluoroscopic guidance extending from L5 through S2. I dissected down through skin and subcutaneous tissue, reflected the paraspinal muscles and placed a self-retaining retractor. I brought in the microscope and the high speed air drill and used that throughout the operation using the drill and then I burred down a laminotomy at L5-S1 first and then thinned the bone beneath it down to the S1, S2, again with a high-speed air drill. I freed up the ligamentum flavum, peeled this inferiorly, trimmed this away, exposing the dura and then I began to follow the S1 root inferiorly through S1, S2, performed a generous laminectomy of S1, partial S2 and then partial L5 as well. Following this, then I explored carefully. I peeled away a large synovial cyst, which was compressing the S1 root with micro instruments through the microscope and as I worked, I was able to obtain an excellent decompression. I explored carefully, the root was no longer compressed. I irrigated with antibiotic solution. I then removed the retractors, obtained perfect hemostasis in the muscle and closed the portal closed the wound with absorbable suture. The skin was closed with 4-0 subcuticular stitch. I felt the surgery went very well. LINDA/MISSY DR: Marry TID: [id number] [facility]OSPITALStephen
--- NOTE | 2021-05-08 15:26 | PATHOLOGY ---
[facility] Accession Number: [id number] . 01 Material submitted: . PART A: vertebral column - LUMBAR DECOMPRESSION PART B: vertebral column - SYNOVIAL CYST . 01 Clinical history: . LUMBAR SYNOVIAL CYST AND RADICULOPATHY LUMBAR DECOMPRESSION WITH REMOVAL OF SYNOVIAL CYST S1-2 . 02 Diagnosis: A. Segments of fibrocartilaginous, adipose, skeletal muscle, and synovial tissue and bone, lumbar decompression: - Degenerative changes of fibrocartilaginous tissue. - Segments of synovial tissue consistent with synovial cyst, with focal hemosiderin laden macrophages. . . - Segment of fibromembranous and fibroadipose tissue and minute segments of calcified bone, designated "synovial cyst": Focal recent hemorrhage. LBQ 05/08/2021 1447 Local . 02 Comment: There is no evidence of an acute inflammatory process or malignancy. (JPM/db; 05/08/2021) . 02 Electronically signed: . Anatoliy Neil MD, Pathologist NPI- [id number] . 01 Gross description: . A. The specimen is received in formalin, labeled "Mumtaz, Mellissa, Lumbar decompression" and consists of multiple pink-perkins rubbery and irregular tissue fragments aggregating 3.4 x 3.0 x 0.9 cm. Community Development Technician sections are submitted in A1 following decalcification. . B. The specimen is received in formalin, labeled "Mumtaz, Mellissa, synovial cyst" and consists of a pink-perkins rubbery irregular tissue (1.4 x 0.9 x 0.4 cm) with minimal attached soft tissue. The specimen is trisected to reveal pink homogenous cut surfaces without a discrete cyst. The specimen is submitted entirely in B1.(EKLUTNA; 05/07/2021) DKA/DKA 05/07/2021 1600 Local . 02 Pathologist provided ICD-10: M71.38, M54.16 . 02 CPT . 251371, 988803, [id number] Specimen Comment: A courtesy copy of this report has been sent to [phone], [phone] Specimen Comment: [id number] Specimen Comment: Report sent to / DR MARK Specimen Comment: A duplicate report has been generated due to demographic updates. Performed at: 01 [facility] [address] [facility] [address], [place] [id number] MD Dean Anderson MD Phone: [phone] Performed at: [facility] [address], [place] [id number] MD Anatoliy Neil MD Phone: [phone]
== END 2021-05-07 14:48 | disposition home or self-care (01) ==
LOC: SURG 07:14
PROVIDERS: ATTEND Neurological Surgery
DX: M71.38 Other bursal cyst, other site (principal); M54.16 Radiculopathy, lumbar region; I10 Essential (primary) hypertension; E11.9 Type 2 diabetes mellitus without complications; M19.90 Unspecified osteoarthritis, unspecified site; E78.00 Pure hypercholesterolemia, unspecified; E03.9 Hypothyroidism, unspecified; E66.9 Obesity, unspecified; G47.30 Sleep apnea, unspecified; Z86.14 Personal history of Methicillin resistant Staphylococcus aureus infection; Z87.891 Personal history of nicotine dependence; Z79.4 Long term (current) use of insulin; Z79.899 Other long term (current) drug therapy; Z98.890 Other specified postprocedural states; Z82.49 Family history of ischemic heart disease and other diseases of the circulatory system; Z83.3 Family history of diabetes mellitus
CPT/HCPCS: 63268; 82962; 88304; 88311; 97161; A4213; A4364; A4556; A4930; A6254; A6258; J0330; J0690; J1100; J1815; J1885; J2250; J2370; J2405; J2704; J3010; J7030; 76000; A4222; A4223; A4452

== ENCOUNTER 2021-05-21 11:11 | Emergency (ER) | payer OTHER ==
[~2021-05-21] VITALS: Ht 157.5 cm; Wt 91.3 kg
[~2021-05-21 11:11] MED LIST changes: -BUPIVACAINE-EPI 0.5% 30 ML VIAL KIT. ONE; -DEXAMETHASONE SOD PHOS 4 MG/ML VIAL ONE; +DOCU-109 PO; -GELATIN SPONGE SIZE 100. ONE; +HYDR-2761 PO; -IV RINGERS,LACTATED 1000ML 1,000 ML IV SCH; -KETOROLAC 60 MG/2 ML VIAL. ONE; -LIDOCAINE 2% PF 5 ML VIAL. ONE; +METH-562 PO; -MIDAZOLAM HCL/PF 2 MG/2 ML VIAL. ONE; -ONDANSETRON PF 4 MG/2 ML VIAL. ONE; -PHENYLEPHRINE 10 MG/ML VIAL. ONE; -PROPOFOL 10 MG/ML (20ML) VIAL. IV ONE; -PROPOFOL 50 ML IV ONE; -REMIFENTANIL 2 MG VIAL. IV ONE; -ROCURONIUM 50 MG/5 ML VIAL. ONE; -SEVOFLURANE 61 TO 120 MINUTES. IH ONE; -SUCCINYLCHOLINE 200 MG/10 ML VIAL. ONE; -THROMBIN TOPICAL 20,000 UNIT SPRAY.SYRN KIT TP ONE; -VANCOMYCIN 1 GM in IV NORMAL SALINE 250ML 250 ML IV PRN; -ceFAZolin SODIUM 1 GM in IV NORMAL SALINE 1000ML BAG 1,000 ML IRR ONE; -fentaNYL PF VIAL 100 MCG/2 ML VIAL ONE
[2021-05-21] MEDS ORDERED: ONDANSETRON PF 4 MG/2 ML VIAL. IVP ONE (11:45)
[2021-05-21] MEDS ORDERED: IV NORMAL SALINE 1000ML BAG 1,000 ML IV ONE (11:45)
--- NOTE | 2021-05-21 12:13 | RAD ---
EXAM: CHEST 1 VIEW History: Shortness of breath COMPARISON: 11/19/2020 TECHNIQUE: Single portable radiograph of the chest FINDINGS: Mild cardiomegaly. Mild bibasilar lung atelectasis or infiltrates. The costophrenic sulci are clear and well demarcated. IMPRESSION: Mild bibasilar lung atelectasis or infiltrates. Electronically signed by: Ludwin Eduardo MD (05/21/2021 12:10 PM) [id number]
[2021-05-21 12:30] LABS: BASO % 1 % (0-3); EOS # 0.1 x10^3/uL (0.0-0.7); EOS % 1 % (0-3); LYMPH # 0.6 x10^3/uL (1.0-4.8); LYMPH % 10 % (24-48); MEAN CORPUSCULAR HEMOGLOBIN 28 pg (25-35); MEAN CORPUSCULAR HGB CONC 32 g/dL (31-37); MEAN CORPUSCULAR VOLUME 88 fL (79-100); MONO # 0.9 x10^3/uL (0.0-1.1); MONO % 14 % (0-9); NEUT # 4.9 x10^3/uL (1.8-7.7); NEUT % 75 % (31-73); PLATELET COUNT 114 x10^3/uL (140-400); RED BLOOD COUNT 3.53 x10^6/uL (3.50-5.40); RED CELL DISTRIBUTION WIDTH 14.3 % (11.5-14.5); WHITE BLOOD COUNT 6.5 x10^3/uL (4.0-11.0)
[2021-05-21 12:45] LABS: BILIRUBIN,URINE NEGATIVE (NEG); CLARITY,URINE CLOUDY; COLOR,URINE YELLOW; NITRITE,URINE NEGATIVE (NEG); PH,URINE 5.5 (<5.0-8.0); PROTEIN,URINE >=300 mg/dL (NEG-TRACE); UROBILINOGEN,URINE 0.2 mg/dL (0.2 mg/dL)
[2021-05-21 12:47] LABS: INFLUENZA A PATIENT NEGATIVE (NEGATIVE); INFLUENZA B PATIENT NEGATIVE (NEGATIVE)
[2021-05-21 12:48] LABS: BACTERIA,URINE FEW /HPF (0-FEW); WBC,URINE 20-40 /HPF (0-4)
[2021-05-21 13:10] LABS: CALCIUM 7.5 mg/dL (8.5-10.1); CREATININE 1.3 mg/dL (0.6-1.0); GFR 41.2; POTASSIUM 4.6 mmol/L (3.5-5.1)
[2021-05-21 13:17] LABS: ALBUMIN 2.8 g/dL (3.4-5.0); ALBUMIN/GLOBULIN RATIO 0.9 (1.0-1.7); MAGNESIUM 2.1 mg/dL (1.8-2.4); TOTAL BILIRUBIN 0.4 mg/dL (0.2-1.0); TOTAL PROTEIN 5.9 g/dL (6.4-8.2)
[2021-05-21] MEDS ORDERED: AZIT250T6 PO (14:42)
--- NOTE | 2021-05-21 14:43 | PHYS DOC ---
Past Medical History Past Medical History: Diabetes-Type II, High Cholesterol, Hypertension, MRSA, Pneumonia, Other Additional Past Medical Histor: urinary sepsis Past Surgical History: Other Additional Past Surgical Histo: perirectal abscess Smoking Status: Never Smoker Alcohol Use: Occasionally Drug Use: None General Adult EDM: Chief Complaint: SHORTNESS OF BREATH HPI: HPI: Patient is a 65-year-old female presents emergency department complaining of cough with congestion, fever and chills since this past Friday. Patient reports she took Tylenol at 7 AM this morning for a 102.1 oral temp. Patient reports nausea without vomiting. States she did have one bout of diarrhea this past Friday. Patient denies seeing blood in her urine or in her stool. Patient denies chest pains or shortness of breath, patient states that she does however have a hard time catching her breath when she is coughing hard. Patient denies abdominal pains, constipation, does report off-and-on headaches that are relieved with [id number] Tylenol, states she did have spinal surgery 2 weeks ago and was supposed to have an appointment at Dr. Cespedes's office to have her suture site examined. Patient denies low back pain, denies loss of urine or loss of bowel control, denies numbness or tingling to her genitals, denies urinary retention, patient denies history of IV drug use. Patient denies other physical complaints or physical concerns. Review of Systems: Review of Systems: 14 body systems of review of systems have been reviewed. See HPI for pertinent positives and negative responses, otherwise all other systems are negative, nonpertinent or noncontributory. Constitutional: Negative except as outlined in HPI above. Skin: Negative except as outlined in HPI above. Eyes: Negative except as outlined in HPI above. HENT: Negative except as outlined in HPI above. Respiratory: Negative except as outlined in HPI above. Cardiovascular: Negative except as outlined in HPI above. GI: Negative except as outlined in HPI above. : Negative except as outlined in HPI above. Musculoskeletal: Negative except as outlined in HPI above. Integument: Negative except as outlined in HPI above. Neurologic: Negative except as outlined in HPI above. Endocrine: Negative except as outlined in HPI above. Lymphatic: Negative except as outlined in HPI above. Psychiatric: Negative except as outlined in HPI above. Heart Score: C/O Chest Pain: No Risk Factors: Risk Factors: DM, Current or recent (<one month) smoker, HTN, HLP, family history of CAD, obesity. Risk Scores: Score 0 - 3: 2.5% MACE over next 6 weeks - Discharge Home Score 4 - 6: 20.3% MACE over next 6 weeks - Admit for Clinical Observation Score 7 - 10: 72.7% MACE over next 6 weeks - Early Invasive Strategies Current Medications: Current Medications Medications (Trade) Dose Ordered Sig/Nataliia Start Time Stop Time Status Last Admin Dose Admin Ondansetron HCl (Zofran) 4 mg 1X ONCE 05/21/21 11:45 05/21/21 11:47 DC 05/21/21 12:28 4 MG Sodium Chloride 1,000 ml @ 1,000 mls/hr 1X ONCE 05/21/21 11:45 05/21/21 12:44 DC 05/21/21 12:26 1,000 MLS/HR Allergies: Allergies: Allergies Coded Allergies Type Severity Reaction Last Updated Verified I S O L A T I O N *CONTACT* Allergy Unknown Unknown 05/07/21 Yes No Known Medication Allergies Allergy Unknown 05/21/21 Yes Physical Exam: PE: Constitutional: Well developed, well nourished, no acute distress, non-toxic appearance. 65-year-old female in no apparent distress. HENT: Normocephalic, atraumatic. Oropharynx moist, pink, no deep tissue infectious process appreciated, bilateral TMs intact and within normal limits patient speaking in normal voice tones. Eyes: Conjunctiva normal, no discharge. Neck: Normal range of motion, no stridor. No nuchal rigidity, no meningismus signs. Cardiovascular: No cyanosis appreciated, distal cap refill less than 2 seconds. Heart sounds S1-S2 to auscultation, regular rate and rhythm. Lungs & Thorax: Patient is in no respiratory distress, no audible adventitious lung sounds appreciated. Lung sounds are clear to auscultation all lung serrano, normal work of breathing. Abdomen: Nontender, no abnormalities noted. Skin: Warm, dry, no erythema, no rash. See back examination for focused skin note. Back: No tenderness, no deformities. Patient does have surgical scar over lumbar area, edges well approximated, Steri-Strips are intact, no erythema present, no drainage, no signs and symptoms of infectious process, nontender to palpation. Extremities: No tenderness, no cyanosis, no clubbing, ROM intact, no edema. Neurologic: Alert and oriented X 3, normal motor function, normal sensory functi on, no focal deficits noted. Psychologic: Affect normal, judgement normal, mood normal. Current Patient Data: Labs: Laboratory Tests Test 05/21/21 11:45 05/21/21 12:15 05/21/21 12:45 Urine Collection Type Unknown Urine Color Yellow Urine Clarity Cloudy Urine pH 5.5 (<5.0-8.0) Urine Specific [place] 1.025 (1.000-1.030) Urine Protein >=300 mg/dL (NEG-TRACE) Urine Glucose (UA) Negative mg/dL (NEG) Urine Ketones (Stick) Negative mg/dL (NEG) Urine Blood Small (NEG) Urine Nitrite Negative (NEG) Urine Bilirubin Negative (NEG) Urine Urobilinogen Dipstick 0.2 mg/dL (0.2 mg/dL) Urine Leukocyte Esterase Trace (NEG) Urine RBC 6-10 /HPF (0-2) Urine WBC 20-40 /HPF (0-4) Urine Squamous Epithelial Cells Few /LPF Urine Bacteria Few /HPF (0-FEW) Urine Mucus Slight /LPF White Blood Count 6.5 x10^3/uL (4.0-11.0) Red Blood Count 3.53 x10^6/uL (3.50-5.40) Hemoglobin 10.0 g/dL (12.0-15.5) L Hematocrit 31.0 % (36.0-47.0) L Mean Corpuscular Volume 88 fL (79-100) Mean Corpuscular Hemoglobin 28 pg (25-35) Mean Corpuscular Hemoglobin Concent 32 g/dL (31-37) Red Cell Distribution Width 14.3 % (11.5-14.5) Platelet Count 114 x10^3/uL (140-400) L Neutrophils (%) (Auto) 75 % (31-73) H Lymphocytes (%) (Auto) 10 % (24-48) L Monocytes (%) (Auto) 14 % (0-9) H Eosinophils (%) (Auto) 1 % (0-3) Basophils (%) (Auto) 1 % (0-3) Neutrophils # (Auto) 4.9 x10^3/uL (1.8-7.7) Lymphocytes # (Auto) 0.6 x10^3/uL (1.0-4.8) L Monocytes # (Auto) 0.9 x10^3/uL (0.0-1.1) Eosinophils # (Auto) 0.1 x10^3/uL (0.0-0.7) Basophils # (Auto) 0.0 x10^3/uL (0.0-0.2) Lactic Acid Level 0.8 mmol/L (0.4-2.0) Influenza Type A Antigen Negative (NEGATIVE) Influenza Type B Antigen Negative (NEGATIVE) SARS-CoV-2 Antigen (Rapid) Negative (NEGATIVE) Sodium Level 142 mmol/L (136-145) Potassium Level 4.6 mmol/L (3.5-5.1) Chloride Level 107 mmol/L (98-107) Carbon Dioxide Level 25 mmol/L (21-32) Anion Gap 10 (6-14) Blood Urea Nitrogen 28 mg/dL (7-20) H Creatinine 1.3 mg/dL (0.6-1.0) H Estimated GFR (Cockcroft-Gault) 41.2 BUN/Creatinine Ratio 22 (6-20) H Glucose Level 229 mg/dL (70-99) H Calcium Level 7.5 mg/dL (8.5-10.1) L Phosphorus Level 3.0 mg/dL (2.6-4.7) Magnesium Level 2.1 mg/dL (1.8-2.4) Total Bilirubin 0.4 mg/dL (0.2-1.0) Aspartate Amino Transferase (AST) 18 U/L (15-37) Alanine Aminotransferase (ALT) 25 U/L (14-59) Alkaline Phosphatase 78 U/L (46-116) Troponin I High Sensitivity 16 ng/L (4-50) Total Protein 5.9 g/dL (6.4-8.2) L Albumin 2.8 g/dL (3.4-5.0) L Albumin/Globulin Ratio 0.9 (1.0-1.7) L Laboratory Tests 05/21/21 12:15 Laboratory Tests 05/21/21 12:45 Vital Signs: Vital Signs Date Time Temp Pulse Resp B/P (MAP) Pulse Ox O2 Delivery O2 Flow Rate FiO2 05/21/21 12:48 82 18 157/70 (99) 97 Room Air 05/21/21 11:11 100.0 100.0 EKG: EKG: EKG performed at 1222 by ED nursing staff shows a normal sinus rhythm without ectopy, LA interval 0.168, QTc interval 0.419, no acute STEMI, no ACS, no acute ischemia appreciated, EKG interpreted by ED attending physician Dr. Merchant. Radiology/Procedures: Radiology/Procedures: REASON: Shortness of breath, fever chills PROCEDURE: CHEST AP ONLY EXAM: CHEST 1 VIEW History: Shortness of breath COMPARISON: 11/19/2020 TECHNIQUE: Single portable radiograph of the chest FINDINGS: Mild cardiomegaly. Mild bibasilar lung atelectasis or infiltrates. T he costophrenic sulci are clear and well demarcated. IMPRESSION: Mild bibasilar lung atelectasis or infiltrates. Electronically signed by: Ludwin Eduardo MD (05/21/2021 12:10 PM) [id number] Course & Med Decision Making: Course & Med Decision Making Pertinent Labs and Imaging studies reviewed. (See chart for details) 65-year-old female, vital signs reviewed, presents emergency department surrounding congestive cough with fever and chills at home since this past Friday. Physical examination is unremarkable, the patient is afebrile, related to patient's explanation of events will order chest x-ray, CBC, CMP, 1 L normal saline, 4 mg IV Zofran for nausea. Called and discussed patient case with Dr. Yan nurse practitioner Leti who did not recommend any further treatment to patient's lumbar surgical site, requested leaving the Steri-Strips in place, requested patient make appointment for later this week or next week for reevaluation. Patient's chest x-ray concerning for atypical pneumonia, related to patient's complaint of congestion with cough and fever at home will treat with azithromycin antibiotic regimen, upon reevaluation of the patient, patient states she feels better and is ready to be discharged home, reviewed findings with patient, antibiotic treatment with side effects, return to ER precautions and concerns were reviewed, discussed with patient did talk with her neurosurgeon Dr. Cespedes, recommended patient reschedule appointment for later this week or next week. Patient gave verbal understanding of and is amenable to ED discharge planning. Discussed with the patient all findings and diagnostic testing as well as the need to follow-up with their primary care provider for further evaluation and treatment or return to the ED if any new or worsening symptoms. Strict return precautions were also discussed at length, the patient voiced understanding and agreement with the discharge planning. The patient was nontoxic in appearance, in no apparent distress, and hemodynamically stable at the time of disposition. Dragon Disclaimer: Dragon Disclaimer: This electronic medical record was generated, in whole or in part, using a voice recognition dictation system. Departure Departure Impression: Primary Impression: Atypical pneumonia Disposition: HOME / SELF CARE / HOMELESS Condition: GOOD Referrals: SANTA MARK MD (PCP) Patient Instructions: Pneumonia, Adult Additional Instructions: You were seen today in the emergency department for cough congestion with fever chills at home. You were treated today with 1 L of normal saline and 4 mg IV Zofran for nausea, you reported your nausea was well relieved. Your chest x-ray did show concerning findings of pneumonia, I am starting you on azithromycin today in the emergency department, I am sending your prescription to the pharmacy of your choice, please take as directed till complete. I spoke with Dr. Cespedes, please continue to perform wound care on your suture site of your lumbar area as directed, please reschedule your appointment for later this week or next week. Please follow-up with your primary care physician for ongoing pneumonia symptoms. Return to the emergency department for worsening symptoms or other concerns. Thank you for visiting our Emergency Department. It was a pleasure taking care of you today in the emergency department and we appreciate you trusting us with your care. If any additional problems come up don't hesitate to return to visit us. Please follow up with your primary care provider so they can plan additional care if needed and know about the problem that you had. If symptoms worsen come back to the Emergency Department. Any concerning symptoms that start such as chest pain, shortness of air, weakness or numbness on one side of the body, running high fevers or any other concerning symptoms return to the ER. EMERGENCY DEPARTMENT GENERAL DISCHARGE INSTRUCTIONS Thank you for coming to [facility] Emergency Department (ED) today and trusting us with you care. We trust that you had a positive experience in our Emergency Department. If you wish to speak to the department management, you may call the Director at [phone]. YOUR FOLLOW UP INSTRUCTIONS ARE FOLLOWS: 1. Do you have a private Doctor? If you do not have a private doctor, please ask for a resource list of physicians or clinics that may be able to assist you with follow up care. 2. The Emergency Physicain has interpreted your x-rays. The X-Ray specialist will also review them. If there is a change in the findings, you will be notified in 48 hours when at all possible. 3. A lab test or culture has been done, your results will be reviewed and you will be notified if you need a change in treatment. ADDITIONAL INSTRUCTIONS AND INFORMATION: 1. Your care today has been supervised by a physician who is specially trained in emergency care. Many problems require more than one evaluation for a complete diagnosis and treatment. We recommend that you schedule your follow up appointment as recommended to ensure complete treatment of you illness or injury. If you are unable to obtain follow up care and continue to have a problem, or if your condition worsens, we recommend that you return to the ED. 2. We are not able to safely determine your condition over the phone nor are we able to give sound medical advice over the phone. For these safety reasons, if you call for medical advice we will ask you to come to the ED for further evaluation. 3. If you have any questions regarding these discharge instructions please call the ED at [phone]. SAFETY INFORMATION: In the interest of safety, wellness, and injury prevention; we encourage you to wear your sealbelt, if you smoke; quite smoking, and we encourage family to use a protective helmet for bicycling and other sporting events that present an increased risk for head injury. IF YOUR SYMPTOMS WORSEN OR NEW SYMPTOMS DEVELOP, OR YOU HAVE CONCERNS ABOUT YOUR CONDITION; OR IF YOUR CONDITION WORSENS WHILE YOU ARE WAITING FOR YOUR FOLLOW UP APPOINTMENT; EITHER CONTACT YOUR PRIMARY CARE DOCTOR, THE PHYSICIAN WHOSE NAME AND NUMBER YOU WERE GIVEN, OR RETURN TO THE ED IMMEDIATELY. Scripts Azithromycin (AZITHROMYCIN TABLET) 250 Mg Tablet 1 PKG PO UD for atypical pneumonia for 5 Days, #6 TAB 0 Refills 2 the first day followed by 1 for days 2-5 Prov: SANTA BROWN APRN 05/21/21 SANTA BROWN APRN May 21, 2021 14:43
[2021-05-21] MEDS ORDERED: AZITHROMYCIN 250 MG TABLET. PO ONE (14:45)
[2021-05-21 14:53] VITALS: BP 168/77
--- NOTE | 2021-05-22 07:24 | EKG ---
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
== END 2021-05-21 14:54 | disposition home or self-care (01) ==
LOC: ER 11:11
DX: J18.9 Pneumonia, unspecified organism (principal); Z20.822 Contact with and (suspected) exposure to COVID-19; E11.9 Type 2 diabetes mellitus without complications; E78.00 Pure hypercholesterolemia, unspecified; I10 Essential (primary) hypertension; Z86.14 Personal history of Methicillin resistant Staphylococcus aureus infection; Z91.041 Radiographic dye allergy status
CPT/HCPCS: 36415; 71045; 80053; 81001; 83605; 83735; 84100; 84484; 85025; 87077; 87086; 87186; 87428; 93005; 96361; 96374; 99285; J2405; J7030

== ENCOUNTER → 2021-08-14 | Outpatient (CLI) | payer BC ==
[~2021-08-14] MED LIST changes: +AZIT250T6 PO; -CHOL4POW2 PO; +CHOL4POW6 PO
[2021-08-14 11:11] LABS: BASO % 1 % (0-3); EOS # 0.3 x10^3/uL (0.0-0.7); EOS % 6 % (0-3); HEMATOCRIT 36.3 % (36.0-47.0); HEMOGLOBIN 11.9 g/dL (12.0-15.5); LYMPH % 19 % (24-48); MEAN CORPUSCULAR HEMOGLOBIN 29 pg (25-35); MEAN CORPUSCULAR HGB CONC 33 g/dL (31-37); MEAN CORPUSCULAR VOLUME 89 fL (79-100); MONO # 0.4 x10^3/uL (0.0-1.1); MONO % 7 % (0-9); NEUT # 3.4 x10^3/uL (1.8-7.7); NEUT % 67 % (31-73); PLATELET COUNT 116 x10^3/uL (140-400); RED CELL DISTRIBUTION WIDTH 14.3 % (11.5-14.5); WHITE BLOOD COUNT 5.1 x10^3/uL (4.0-11.0)
[2021-08-15 14:14] LABS: IMMUNOGLOBULIN A 169 mg/dL (87-352); IMMUNOGLOBULIN G 966 mg/dL (586-1602); IMMUNOGLOBULIN M 242 mg/dL (26-217)
[2021-08-15 16:13] LABS: ALBUM 3.4 g/dL (2.9-4.4); ALPHA 1 0.2 g/dL (0.0-0.4); ALPHA 2 0.9 g/dL (0.4-1.0); BETA 0.9 g/dL (0.7-1.3); GAMMA 1.2 g/dL (0.4-1.8); KAPPA FREE 47.3 mg/L (3.3-19.4); KAPPA LAMBDA RATIO 1.67 (0.26-1.65); LAMBDA FREE 28.3 mg/L (5.7-26.3); PROTEIN TOTAL 6.6 g/dL (6.0-8.5); SPEP AG RATIO 1.1 (0.7-1.7)
== END ==
LOC: ONCLAB 09:42
PROVIDERS: ATTEND Internal Medicine Hematology & Oncology
DX: D69.6 Thrombocytopenia, unspecified (principal)
CPT/HCPCS: 36415; 82525; 82607; 82746; 82784; 83520; 84165; 85025; 86334; 86703; 86803